=== PATIENT | male | born 1990 | race Two or more races ===

== ENCOUNTER 2024-08-16 02:29 | Inpatient (IN) | payer OTHER ==
[~2024-08-16] VITALS: Ht 183.1 cm; Wt 210.9 kg
[2024-08-16 05:32] LABS: BASOPHILS # (AUTO) 0.1 K/uL (0.0-0.2); BASOPHILS % (AUTO) 0.6 % (0.0-2.0); EOSINOPHILS # (AUTO) 0.1 K/uL (0.0-0.7); HEMATOCRIT 41 % (39-51); HEMOGLOBIN 12.9 g/dL (13.5-17.5); LYMPHOCYTES # (AUTO) 1.5 K/uL (0.8-4.8); LYMPHOCYTES % (AUTO) 10.2 % (20.0-44.0); MEAN CORPUSCULAR HEMOGLOBIN 29 PG (26.0-33.0); MEAN CORPUSCULAR HGB CONC 32 g/dl (31.0-36.0); MEAN CORPUSCULAR VOLUME 91 fL (80-96); MONOCYTES # (AUTO) 0.4 K/uL (0.1-1.30); MONOCYTES % (AUTO) 2.8 % (2.0-12.0); NEUTROPHILS # (AUTO) 12.3 K/uL (1.8-8.9); NEUTROPHILS % (AUTO) 85.4 % (43.0-81.0); PLATELET COUNT (AUTO) 234 K/uL (150-450); RED BLOOD CELL COUNT(AUTO) 4.47 MIL/uL (4.5-6.0); WHITE BLOOD COUNT (AUTO) 14.4 K/uL (4.3-11.0)
[2024-08-16 06:12] LABS: ABG BASE EXCESS -0.7 mmol/L (-2.0-3.0); ABG OXYGEN SATURATION 98.2 % (94.0-98.0); ABG PCO2 37.9 mmHg (35.0-48.0); ABG PH 7.412 (7.350-7.450); ABG PO2 124.5 mmHg (83.0-108.0); ABG TOTAL HEMOGLOBIN 13.6 G/dL (13.5-17.5); COHb 0.3 % (0.5-1.5); MetHb 0.3 % (0.0-1.5); O2Hb 97.6 % (94.0-97.0); VT, ABG 600 mL
[2024-08-16 06:14] LABS: CALCIUM, SERUM 9.2 mg/dL (8.5-10.1); POTASSIUM 4.1 mmol/L (3.5-5.1)
[2024-08-16 06:27] LABS: ALBUMIN 3.2 g/dL (3.4-5.0); BILIRUBIN,TOTAL 0.3 mg/dL (0.2-1.0); TOTAL PROTEIN, SERUM 7.8 g/dL (6.4-8.2)
[2024-08-16] MEDS ORDERED: Z GUARD REMEDY 4 OZ OINT TP PRN (07:00)
[2024-08-16] MEDS ORDERED: ZOLPIDEM TARTRATE 5 MG TABLET PO PRN (07:00)
[2024-08-16] MEDS ORDERED: ONDANSETRON HCL/PF 4 MG/2 ML VIAL IVP PRN (07:00)
[2024-08-16] MEDS ORDERED: ENOXAPARIN SODIUM 40 MG/0.4 ML DISP.SYRIN SQ SCH (07:00)
[2024-08-16] MEDS ORDERED: MAGNESIUM HYDROXIDE 30 ML UDC PO PRN (07:00)
[2024-08-16] MEDS ORDERED: MAG HYDROX/AL HYDROX/SIMETH 30 ML UDC PO PRN (07:00)
[2024-08-16] MEDS ORDERED: ACETAMINOPHEN 325 MG TABLET PO PRN (07:00)
[2024-08-16] MEDS ORDERED: PANTOPRAZOLE 40 MG TABLET.DR PO SCH (07:30)
[2024-08-16] MEDS: VANCOMYCIN 1 GM in IV D5W 250ml IV SCH ×3 (09:30→21:54)
[2024-08-16] MEDS ORDERED: POLY17PO4 PO (11:01)
[2024-08-16] MEDS ORDERED: LORA-259 PO (11:01)
[2024-08-16] MEDS ORDERED: POLY15DR31 EACHEYE (11:01)
[2024-08-16] MEDS ORDERED: PANT40TA49 PO (11:01)
[2024-08-16] MEDS ORDERED: MULT-213 PO (11:01)
[2024-08-16] MEDS ORDERED: ACET325T53 PO (11:01)
[2024-08-16] MEDS ORDERED: SENN-261 PO (11:01)
[2024-08-16] MEDS ORDERED: QUET50TA PO (11:01)
[2024-08-16] MEDS ORDERED: INSU100V42 SQ (11:01)
[2024-08-16] MEDS ORDERED: ZINC56.713 TP (11:01)
[2024-08-16] MEDS ORDERED: DOCU100C36 PO (11:01)
[2024-08-16] MEDS ORDERED: TOPI100T PO (11:01)
[2024-08-16] MEDS ORDERED: METO25TA6 PO (11:01)
[2024-08-16] MEDS ORDERED: ONDA-97 PO (11:01)
[2024-08-16] MEDS ORDERED: HEPA50007 SQ (11:01)
[2024-08-16] MEDS ORDERED: TAMS-12 PO (11:01)
[2024-08-16] MEDS ORDERED: ASCO500T10 PO (11:01)
[2024-08-16] MEDS: CEFEPIME 2 GM in IV D5W 100 ML IV SCH (12:15)
[2024-08-16] MEDS ORDERED: ENOXAPARIN SODIUM 40 MG/0.4 ML DISP.SYRIN SQ ONE (13:01)
[2024-08-16] MEDS: IV NS 0.9% 1,000 ML BAG IV ONE (13:05)
[2024-08-16 14:30] LABS: APPEARANCE,URINE CLEAR (CLEAR); BILIRUBIN,URINE NEGATIVE (NEGATIVE); BLOOD, URINE NEGATIVE Ery/uL (NEGATIVE); COLOR,URINE YELLOW (YELLOW); KETONES,URINE NEGATIVE (NEGATIVE); LEUKOCYTE ESTERASE ,URINE NEGATIVE (NEGATIVE); NITRITE, URINE NEGATIVE (NEGATIVE); PROTEIN,URINE NEGATIVE (NEGATIVE); UGLUCOSE NEGATIVE (NEGATIVE); UROBILINOGEN,URINE 0.2 EU/dL (0.2)
[2024-08-16] MEDS ORDERED: DEXTROSE 50%-WATER 50 ML DISP.SYRIN IV PRN (16:00)
[2024-08-16] MEDS: DOCUSATE SODIUM 100 MG CAPSULE PO SCH (16:32)
[2024-08-16] MEDS: methylPREDNISolone SOD SUCC 125 MG/2ML VIAL IV SCH (16:32)
[2024-08-16] MEDS ORDERED: POLYVINYL ALCOHOL EACHEYE SCH (17:00)
[2024-08-16] MEDS: TOPIRAMATE 100 MG TABLET PO SCH (17:43)
[2024-08-16] MEDS: POLYVINYL ALCOHOL 15 ML BOTTLE OP SCH (17:43)
[2024-08-16] MEDS: BLOOD SUGAR DIAGNOSTIC 1 EACH STRIP VI SCH (17:50)
[2024-08-16 20:00] VITALS: BP 101/74; TEMP 98.4; O2SAT 100
[2024-08-16] MEDS: IV NS 0.9% 1,000 ML IV PRN (20:13)
[2024-08-16] MEDS: METOPROLOL TARTRATE 25 MG TABLET PO SCH (21:00)
[2024-08-16] MEDS: LORAZEPAM 1 MG TABLET PO SCH (21:40)
[2024-08-16] MEDS: QUETIAPINE FUMARATE 25 MG TABLET PO SCH (21:40)
[2024-08-16] MEDS: HEPARIN SODIUM, PORCINE 5000 UNITS/1 ML VIAL SQ SCH (21:41)
[2024-08-16] MEDS: SENNOSIDES 8.6 MG TABLET PO SCH (21:41)
[2024-08-16] MEDS: *INSULIN REGULAR(HUMULIN R)HUM 100 UNIT/ML VIAL SQ PRN (22:19)
[2024-08-17] VITALS: BP 103/52; TEMP 99.1; O2SAT 97
[2024-08-17 04:00] VITALS: BP 125/66; TEMP 97.9; O2SAT 97
[2024-08-17 06:13] LABS: BASOPHILS % (AUTO) 0.1 % (0.0-2.0); HEMATOCRIT 38 % (39-51); HEMOGLOBIN 12.3 g/dL (13.5-17.5); LYMPHOCYTES # (AUTO) 0.6 K/uL (0.8-4.8); LYMPHOCYTES % (AUTO) 4.5 % (20.0-44.0); MEAN CORPUSCULAR HEMOGLOBIN 29 PG (26.0-33.0); MEAN CORPUSCULAR HGB CONC 32 g/dl (31.0-36.0); MEAN CORPUSCULAR VOLUME 90 fL (80-96); MONOCYTES # (AUTO) 0.1 K/uL (0.1-1.30); NEUTROPHILS % (AUTO) 94.4 % (43.0-81.0); PLATELET COUNT (AUTO) 199 K/uL (150-450); RED BLOOD CELL COUNT(AUTO) 4.24 MIL/uL (4.5-6.0); RED CELL DISTRIBUTION WIDTH 14.5 % (11.5-15.0); WHITE BLOOD COUNT (AUTO) 13.8 K/uL (4.3-11.0)
[2024-08-17 06:24] LABS: MAGNESIUM 2.1 mg/dL (1.8-2.4); PHOSPHORUS 1.8 mg/dL (2.5-4.9); POTASSIUM 4.5 mmol/L (3.5-5.1)
[2024-08-17] MEDS: INSULIN REGULAR, HUMAN 100 UNIT/ML 3 ML VIAL SQ PRN (07:15)
[2024-08-17 08:00] VITALS: BP 114/65; TEMP 98.4; O2SAT 96
[2024-08-17] MEDS: TAMSULOSIN 0.4 MG CAP.SR.24H PO SCH (08:26)
[2024-08-17] MEDS: ASCORBIC ACID 500 MG TABLET PO SCH (08:29)
[2024-08-17] MEDS: MULTIVIT W/MINERALS 1 TAB TABLET PO SCH (08:29)
[2024-08-17] MEDS: PANTOPRAZOLE 40 MG TABLET.DR PO SCH (08:29)
[2024-08-17] MEDS: POLYETHYLENE GLYCOL 3350 17 GM POWD.PACK PO SCH (08:29)
[2024-08-17] MEDS: ALBUTEROL HALF STRENGTH 1.25 MG/3 ML VIAL.NEB NEB SCH (09:00)
[2024-08-17] MEDS: IPRATROPIUM NEB FS 0.5 MG/2.5 ML AMPUL.NEB NEB SCH (09:00)
[2024-08-17] MEDS ORDERED: LORAZEPAM 1 MG TABLET PO PRN (09:00)
[2024-08-17] MEDS: ZINC OXIDE 56.7 GM TUBE TP SCH (09:09)
[2024-08-17] MEDS: methylPREDNISolone SOD SUCC 125 MG/2ML VIAL IV SCH (10:16)
[2024-08-17 10:50] LABS: ABG BASE EXCESS -4.8 mmol/L (-2.0-3.0); ABG OXYGEN SATURATION 98.3 % (94.0-98.0); ABG PCO2 43.1 mmHg (35.0-48.0); ABG PH 7.311 (7.350-7.450); ABG TOTAL HEMOGLOBIN 13.1 G/dL (13.5-17.5); COHb 0.3 % (0.5-1.5); MetHb 0.3 % (0.0-1.5); O2Hb 97.7 % (94.0-97.0); PEEP,BG 5 cm H2O; SITE, ABG LEFT RADIAL
[2024-08-17 12:00] VITALS: BP 112/71; TEMP 97.5; O2SAT 96
[2024-08-17 16:00] VITALS: BP 118/77; TEMP 97.7; O2SAT 99
[2024-08-17] MEDS: K PHOS NEUTRAL 250 MG TABLET PO ONE (16:24)
[2024-08-17 20:00] VITALS: BP 119/50; TEMP 97.9; O2SAT 95
[2024-08-17] MEDS: VANCOMYCIN 500 MG in IV D5W 100ml IV SCH (21:36)
[2024-08-17] MEDS: INSULIN GLARGINE, 100 UNIT/ML CARTRIDGE SQ SCH (21:44)
[2024-08-18] VITALS (8 sets, daily range): BP systolic 97–128; BP diastolic 64–87; TEMP 97.3–99.1; O2SAT 92–100
[2024-08-18 06:45] LABS: BASOPHILS % (AUTO) 0.2 % (0.0-2.0); HEMATOCRIT 38 % (39-51); LYMPHOCYTES # (AUTO) 1.6 K/uL (0.8-4.8); LYMPHOCYTES % (AUTO) 9.7 % (20.0-44.0); MEAN CORPUSCULAR HEMOGLOBIN 29 PG (26.0-33.0); MEAN CORPUSCULAR HGB CONC 32 g/dl (31.0-36.0); MEAN CORPUSCULAR VOLUME 91 fL (80-96); MONOCYTES % (AUTO) 5.9 % (2.0-12.0); NEUTROPHILS # (AUTO) 13.7 K/uL (1.8-8.9); NEUTROPHILS % (AUTO) 84.2 % (43.0-81.0); PLATELET COUNT (AUTO) 204 K/uL (150-450); RED BLOOD CELL COUNT(AUTO) 4.12 MIL/uL (4.5-6.0); RED CELL DISTRIBUTION WIDTH 14.3 % (11.5-15.0); WHITE BLOOD COUNT (AUTO) 16.3 K/uL (4.3-11.0)
[2024-08-18 06:59] LABS: CALCIUM, SERUM 8.7 mg/dL (8.5-10.1); CREATININE 0.9 mg/dL (0.6-1.3); PHOSPHORUS 3.2 mg/dL (2.5-4.9); POTASSIUM 4.1 mmol/L (3.5-5.1)
[2024-08-18] MEDS: methylPREDNISolone SOD SUCC 40 MG/ML VIAL IV SCH (09:32)
[2024-08-18 10:47] LABS: ABG BASE EXCESS 3.2 mmol/L (-2.0-3.0); ABG OXYGEN SATURATION 96.7 % (94.0-98.0); ABG PCO2 61.4 mmHg (35.0-48.0); ABG PH 7.318 (7.350-7.450); ABG PO2 89.7 mmHg (83.0-108.0); ABG TOTAL HEMOGLOBIN 12.8 G/dL (13.5-17.5); COHb 0.2 % (0.5-1.5); MetHb 0.2 % (0.0-1.5); O2Hb 96.3 % (94.0-97.0); SITE, ABG LEFT RADIAL
[2024-08-18 13:49] LABS: ABG BASE EXCESS 1.1 mmol/L (-2.0-3.0); ABG OXYGEN SATURATION 92.1 % (94.0-98.0); ABG PCO2 56.3 mmHg (35.0-48.0); ABG PH 7.319 (7.350-7.450); ABG PO2 62.5 mmHg (83.0-108.0); COHb 0.6 % (0.5-1.5); MetHb 0.3 % (0.0-1.5); O2Hb 91.3 % (94.0-97.0); SITE, ABG LEFT RADIAL
[2024-08-19] VITALS: BP 91/56; TEMP 98.2; O2SAT 99
[2024-08-19 04:00] VITALS: BP 98/51; TEMP 98.2; O2SAT 99
[2024-08-19 05:15] LABS: ABG BASE EXCESS 1.9 mmol/L (-2.0-3.0); ABG OXYGEN SATURATION 98.7 % (94.0-98.0); ABG PCO2 45.4 mmHg (35.0-48.0); ABG PH 7.395 (7.350-7.450); ABG PO2 130.3 mmHg (83.0-108.0); ABG TOTAL HEMOGLOBIN 12.5 G/dL (13.5-17.5); COHb 0.4 % (0.5-1.5); MetHb 0.1 % (0.0-1.5); O2Hb 98.2 % (94.0-97.0); PEEP,BG 5 cm H2O; SITE, ABG RIGHT RADIAL; VT, ABG 600 mL
[2024-08-19 07:12] LABS: BASOPHILS # (AUTO) 0.1 K/uL (0.0-0.2); BASOPHILS % (AUTO) 0.9 % (0.0-2.0); EOSINOPHILS # (AUTO) 0.1 K/uL (0.0-0.7); EOSINOPHILS % (AUTO) 0.8 % (0.0-6.0); HEMATOCRIT 35 % (39-51); HEMOGLOBIN 11.4 g/dL (13.5-17.5); LYMPHOCYTES # (AUTO) 2.7 K/uL (0.8-4.8); LYMPHOCYTES % (AUTO) 22.5 % (20.0-44.0); MEAN CORPUSCULAR HEMOGLOBIN 29 PG (26.0-33.0); MEAN CORPUSCULAR HGB CONC 33 g/dl (31.0-36.0); MEAN CORPUSCULAR VOLUME 89 fL (80-96); MONOCYTES # (AUTO) 0.8 K/uL (0.1-1.30); MONOCYTES % (AUTO) 7.1 % (2.0-12.0); NEUTROPHILS # (AUTO) 8.2 K/uL (1.8-8.9); NEUTROPHILS % (AUTO) 68.7 % (43.0-81.0); PLATELET COUNT (AUTO) 176 K/uL (150-450); RED BLOOD CELL COUNT(AUTO) 3.92 MIL/uL (4.5-6.0); WHITE BLOOD COUNT (AUTO) 11.9 K/uL (4.3-11.0)
[2024-08-19 07:40] LABS: CALCIUM, SERUM 8.4 mg/dL (8.5-10.1); CREATININE 0.8 mg/dL (0.6-1.3); POTASSIUM 3.7 mmol/L (3.5-5.1)
[2024-08-19 08:00] VITALS: BP 121/98; TEMP 98.2; O2SAT 100
[2024-08-19 12:00] VITALS: BP 114/69; TEMP 97.7; O2SAT 97
[2024-08-19 16:00] VITALS: BP 102/59; TEMP 99.3; O2SAT 98
[2024-08-19 20:00] VITALS: BP 110/50; TEMP 98.1; O2SAT 98
[2024-08-20] VITALS: BP 114/61; TEMP 98.1; O2SAT 98
[2024-08-20 04:00] VITALS: BP 136/76; TEMP 98.2; O2SAT 98
[2024-08-20 05:58] LABS: ABG BASE EXCESS 4.9 mmol/L (-2.0-3.0); ABG OXYGEN SATURATION 98.7 % (94.0-98.0); ABG PCO2 50.1 mmHg (35.0-48.0); ABG PH 7.406 (7.350-7.450); ABG PO2 134.8 mmHg (83.0-108.0); ABG TOTAL HEMOGLOBIN 14.4 G/dL (13.5-17.5); COHb 0.6 % (0.5-1.5); MetHb 0.2 % (0.0-1.5); O2Hb 97.9 % (94.0-97.0); SITE, ABG RIGHT RADIAL
[2024-08-20 08:00] VITALS: BP 123/45; TEMP 98.1; O2SAT 100
[2024-08-20 09:39] LABS: BASOPHILS # (AUTO) 0.2 K/uL (0.0-0.2); BASOPHILS % (AUTO) 1.1 % (0.0-2.0); EOSINOPHILS # (AUTO) 0.2 K/uL (0.0-0.7); EOSINOPHILS % (AUTO) 1.5 % (0.0-6.0); HEMATOCRIT 39 % (39-51); HEMOGLOBIN 13.1 g/dL (13.5-17.5); LYMPHOCYTES # (AUTO) 3.3 K/uL (0.8-4.8); LYMPHOCYTES % (AUTO) 21.8 % (20.0-44.0); MEAN CORPUSCULAR HEMOGLOBIN 29 PG (26.0-33.0); MEAN CORPUSCULAR HGB CONC 33 g/dl (31.0-36.0); MEAN CORPUSCULAR VOLUME 88 fL (80-96); MONOCYTES # (AUTO) 0.9 K/uL (0.1-1.30); MONOCYTES % (AUTO) 5.7 % (2.0-12.0); NEUTROPHILS # (AUTO) 10.6 K/uL (1.8-8.9); NEUTROPHILS % (AUTO) 69.9 % (43.0-81.0); PLATELET COUNT (AUTO) 196 K/uL (150-450); RED BLOOD CELL COUNT(AUTO) 4.48 MIL/uL (4.5-6.0); RED CELL DISTRIBUTION WIDTH 14.3 % (11.5-15.0); WHITE BLOOD COUNT (AUTO) 15.1 K/uL (4.3-11.0)
[2024-08-20 09:55] LABS: CALCIUM, SERUM 8.8 mg/dL (8.5-10.1); CREATININE 0.9 mg/dL (0.6-1.3); POTASSIUM 3.8 mmol/L (3.5-5.1)
[2024-08-20 12:00] VITALS: BP 116/60; TEMP 97.9; O2SAT 98
[2024-08-20 16:00] VITALS: BP 132/66; TEMP 97.9; O2SAT 99
[2024-08-20 20:00] VITALS: BP 127/70; TEMP 98.2; O2SAT 96
[2024-08-21] VITALS (16 sets, daily range): BP systolic 109–127; BP diastolic 60–80; TEMP 97.7–98.4; O2SAT 94–100
[2024-08-21 07:55] LABS: BASOPHILS % (AUTO) 0.2 % (0.0-2.0); EOSINOPHILS # (AUTO) 0.2 K/uL (0.0-0.7); EOSINOPHILS % (AUTO) 1.2 % (0.0-6.0); HEMATOCRIT 41 % (39-51); HEMOGLOBIN 13.6 g/dL (13.5-17.5); LYMPHOCYTES # (AUTO) 3.5 K/uL (0.8-4.8); LYMPHOCYTES % (AUTO) 21.5 % (20.0-44.0); MEAN CORPUSCULAR HEMOGLOBIN 29 PG (26.0-33.0); MEAN CORPUSCULAR HGB CONC 33 g/dl (31.0-36.0); MEAN CORPUSCULAR VOLUME 89 fL (80-96); MONOCYTES % (AUTO) 6.4 % (2.0-12.0); NEUTROPHILS # (AUTO) 11.5 K/uL (1.8-8.9); NEUTROPHILS % (AUTO) 70.7 % (43.0-81.0); PLATELET COUNT (AUTO) 214 K/uL (150-450); RED BLOOD CELL COUNT(AUTO) 4.65 MIL/uL (4.5-6.0); RED CELL DISTRIBUTION WIDTH 14.3 % (11.5-15.0); WHITE BLOOD COUNT (AUTO) 16.3 K/uL (4.3-11.0)
[2024-08-21 08:10] LABS: CREATININE 0.9 mg/dL (0.6-1.3); POTASSIUM 3.8 mmol/L (3.5-5.1)
[2024-08-21 11:23] LABS: ABG BASE EXCESS 6.2 mmol/L (-2.0-3.0); ABG OXYGEN SATURATION 97.6 % (94.0-98.0); ABG PCO2 51.5 mmHg (35.0-48.0); ABG PH 7.414 (7.350-7.450); ABG PO2 97.9 mmHg (83.0-108.0); ABG TOTAL HEMOGLOBIN 14.3 G/dL (13.5-17.5); COHb 0.7 % (0.5-1.5); MetHb 0.4 % (0.0-1.5); O2Hb 96.5 % (94.0-97.0); SITE, ABG RIGHT BRACHIAL
[2024-08-21 11:43] LABS: ANISOCYTOSIS 1+; LYMPHOCYTES % (MANUAL) 25 % (16-48); MONOCYTES % (MANUAL) 3 % (0-11.0); NEUTROPHILS % (MANUAL) 72 (42-76); PLATELET ESTIMATE ADEQUATE
[2024-08-21 11:44] LABS: STOMATOCYTES 1+
[2024-08-21] MEDS: ACETYLCYSTEINE 20% SOLN 800 MG/4 ML VIAL NEB SCH (16:30)
[2024-08-22] VITALS (10 sets, daily range): BP systolic 107–123; BP diastolic 61–80; TEMP 98.2–98.8; O2SAT 96–100
[2024-08-22 06:55] LABS: BASOPHILS # (AUTO) 0.1 K/uL (0.0-0.2); BASOPHILS % (AUTO) 0.5 % (0.0-2.0); EOSINOPHILS # (AUTO) 0.2 K/uL (0.0-0.7); EOSINOPHILS % (AUTO) 1.2 % (0.0-6.0); HEMATOCRIT 42 % (39-51); HEMOGLOBIN 13.8 g/dL (13.5-17.5); LYMPHOCYTES # (AUTO) 3.9 K/uL (0.8-4.8); LYMPHOCYTES % (AUTO) 22.2 % (20.0-44.0); MEAN CORPUSCULAR HEMOGLOBIN 29 PG (26.0-33.0); MEAN CORPUSCULAR HGB CONC 33 g/dl (31.0-36.0); MEAN CORPUSCULAR VOLUME 89 fL (80-96); MONOCYTES # (AUTO) 0.9 K/uL (0.1-1.30); MONOCYTES % (AUTO) 5.1 % (2.0-12.0); NEUTROPHILS # (AUTO) 12.4 K/uL (1.8-8.9); PLATELET COUNT (AUTO) 203 K/uL (150-450); RED CELL DISTRIBUTION WIDTH 14.5 % (11.5-15.0); WHITE BLOOD COUNT (AUTO) 17.5 K/uL (4.3-11.0)
[2024-08-22 07:08] LABS: CALCIUM, SERUM 9.2 mg/dL (8.5-10.1); CREATININE 0.8 mg/dL (0.6-1.3); POTASSIUM 3.7 mmol/L (3.5-5.1)
[2024-08-22] MEDS ORDERED: Insulin Glargine,Hum SQ (11:13)
[2024-08-22] MEDS ORDERED: ALBU1.25 NEB (11:13)
[2024-08-22] MEDS ORDERED: LEVO750T46 PO (11:13)
[2024-08-22] MEDS ORDERED: ACET200V4 NEB (11:13)
[2024-08-22] MEDS ORDERED: IPRA0.2S9 NEB (11:13)
[2024-08-22] MEDS ORDERED: METH4TAB17 PO (11:16)
[2024-08-22 14:04] LABS: EOSINOPHILS % (MANUAL) 2 % (0-4); LYMPHOCYTES % (MANUAL) 21 % (16-48); MONOCYTES % (MANUAL) 7 % (0-11.0); NEUTROPHILS % (MANUAL) 70 (42-76); PLATELET ESTIMATE ADEQUATE
[2024-08-23] VITALS (12 sets, daily range): BP systolic 103–134; BP diastolic 56–80; TEMP 98.1–99; O2SAT 92–99
[2024-08-23 07:23] LABS: BASOPHILS # (AUTO) 0.1 K/uL (0.0-0.2); BASOPHILS % (AUTO) 0.3 % (0.0-2.0); EOSINOPHILS # (AUTO) 0.2 K/uL (0.0-0.7); HEMATOCRIT 40 % (39-51); HEMOGLOBIN 13.3 g/dL (13.5-17.5); LYMPHOCYTES # (AUTO) 3.8 K/uL (0.8-4.8); LYMPHOCYTES % (AUTO) 20.8 % (20.0-44.0); MEAN CORPUSCULAR HEMOGLOBIN 30 PG (26.0-33.0); MEAN CORPUSCULAR HGB CONC 33 g/dl (31.0-36.0); MEAN CORPUSCULAR VOLUME 90 fL (80-96); MONOCYTES # (AUTO) 1.2 K/uL (0.1-1.30); MONOCYTES % (AUTO) 6.2 % (2.0-12.0); NEUTROPHILS # (AUTO) 13.2 K/uL (1.8-8.9); NEUTROPHILS % (AUTO) 71.7 % (43.0-81.0); PLATELET COUNT (AUTO) 199 K/uL (150-450); RED BLOOD CELL COUNT(AUTO) 4.51 MIL/uL (4.5-6.0); RED CELL DISTRIBUTION WIDTH 14.5 % (11.5-15.0); WHITE BLOOD COUNT (AUTO) 18.5 K/uL (4.3-11.0)
[2024-08-23 08:03] LABS: CALCIUM, SERUM 8.9 mg/dL (8.5-10.1); POTASSIUM 4.1 mmol/L (3.5-5.1)
[2024-08-23 10:26] LABS: EOSINOPHILS % (MANUAL) 1 % (0-4); LYMPHOCYTES % (MANUAL) 26 % (16-48); MONOCYTES % (MANUAL) 6 % (0-11.0); NEUTROPHILS % (MANUAL) 67 (42-76)
[2024-08-23 10:27] LABS: PLATELET ESTIMATE ADEQUATE
[2024-08-24] VITALS (13 sets, daily range): BP systolic 109–125; BP diastolic 51–74; TEMP 98.1–98.8; O2SAT 92–100
[2024-08-24 06:42] LABS: EOSINOPHILS # (AUTO) 0.2 K/uL (0.0-0.7); EOSINOPHILS % (AUTO) 0.9 % (0.0-6.0); HEMATOCRIT 42 % (39-51); HEMOGLOBIN 13.3 g/dL (13.5-17.5); LYMPHOCYTES # (AUTO) 3.8 K/uL (0.8-4.8); LYMPHOCYTES % (AUTO) 19.9 % (20.0-44.0); MEAN CORPUSCULAR HEMOGLOBIN 28 PG (26.0-33.0); MEAN CORPUSCULAR HGB CONC 32 g/dl (31.0-36.0); MEAN CORPUSCULAR VOLUME 89 fL (80-96); MONOCYTES # (AUTO) 1.1 K/uL (0.1-1.30); MONOCYTES % (AUTO) 5.9 % (2.0-12.0); NEUTROPHILS # (AUTO) 14.2 K/uL (1.8-8.9); NEUTROPHILS % (AUTO) 73.3 % (43.0-81.0); PLATELET COUNT (AUTO) 197 K/uL (150-450); RED BLOOD CELL COUNT(AUTO) 4.72 MIL/uL (4.5-6.0); RED CELL DISTRIBUTION WIDTH 14.9 % (11.5-15.0); WHITE BLOOD COUNT (AUTO) 19.3 K/uL (4.3-11.0)
[2024-08-24 06:57] LABS: CALCIUM, SERUM 8.3 mg/dL (8.5-10.1); CREATININE 1.1 mg/dL (0.6-1.3); POTASSIUM 4.1 mmol/L (3.5-5.1)
[2024-08-25] VITALS (12 sets, daily range): BP systolic 105–128; BP diastolic 55–70; TEMP 97.7–98.6; O2SAT 91–99
[2024-08-25] MEDS: predniSONE 20 MG TABLET PO SCH (08:33)
[2024-08-25] MEDS ORDERED: SEMA0.25 SQ (09:35)
[2024-08-26] VITALS: BP 114/66; TEMP 98.8; O2SAT 97
[2024-08-26 04:00] VITALS: BP 106/54; TEMP 99.1; O2SAT 100
[2024-08-26 08:00] VITALS: BP 103/52; TEMP 98.2; O2SAT 98
[2024-08-26 08:14] VITALS: BP 103/52
[2024-08-26 08:24] VITALS: O2SAT 94
== END 2024-08-26 11:31 | DRG 720 ==
LOC: ER 02:31 → TELE IN 09:03 → TELE1 12:31
PROVIDERS: ADMIT Nurse Practitioner Acute Care; ATTEND Nurse Practitioner Acute Care
PROC: 5A1955Z Respiratory Ventilation, Greater than 96 Consecutive Hours (ICD-10-PCS; principal; 2024-08-16)
DX: A41.9 Sepsis, unspecified organism (principal); J96.21 Acute and chronic respiratory failure with hypoxia; J15.69 Pneumonia due to other Gram-negative bacteria; Z99.11 Dependence on respirator [ventilator] status; Z93.0 Tracheostomy status; Z93.1 Gastrostomy status; Z88.0 Allergy status to penicillin; R13.10 Dysphagia, unspecified; E11.9 Type 2 diabetes mellitus without complications; F41.9 Anxiety disorder, unspecified; I10 Essential (primary) hypertension; J98.11 Atelectasis; Z68.44 Body mass index [BMI] 60.0-69.9, adult; J40 Bronchitis, not specified as acute or chronic; E66.2 Morbid (severe) obesity with alveolar hypoventilation; Z79.4 Long term (current) use of insulin
CPT/HCPCS: 31720; 36415; 36600; 71045-TC; 80048-TC; 80053-TC; 80202-TC; 82803-TC; 82962-TC; 83735-TC; 83880; 84100-TC; 84484-TC; 85025-TC; 87040-TC; 87070-TC; 87081-TC; 87205-TC; 92507-TC; 92521; 94002-TC; 94003-TC; 94640-TC; 94760-TC; 94762-TC; 94799-TC; 97110-TC; 97530-TC; 97535-TC; 99082-TC; A4223; A4623; A7526; G0378; J0692; J1644; J1650; J1815; J2919; J3370; J7030; J7060; J7120; L8501